=== PATIENT | female | born 1980 | race Caucasian/White ===

== ENCOUNTER 2017-03-11 05:48 | Emergency (ER) | payer MEDICAID, SELFPAY ==
[~2017-03-11] VITALS: Ht 160 cm; Wt 66.2 kg
[2017-03-11] MEDS ORDERED: SODIUM CHLORIDE FLUSH 10ML SYR IVF ONE (06:30)
[2017-03-11] MEDS ORDERED: SODIUM CHLORIDE 0.9% 1,000ML IVBOLUS ONE (06:30)
[2017-03-11] MEDS ORDERED: FAMOTIDINE 20 MG/2 ML IVP ONE (06:30)
[2017-03-11] MEDS ORDERED: ONDANSETRON 2MG/ML, 2ML IVPush ONE (06:30)
[2017-03-11] MEDS ORDERED: ONDANSETRON 2MG/ML, 2ML ONE (06:49)
[2017-03-11] MEDS ORDERED: FAMOTIDINE 20 MG/2 ML ONE (06:49)
[2017-03-11 07:43] LABS: ASPARTATE AMINO TRANSFERASE 16 U/L (15-37); BLOOD UREA NITROGEN 10 mg/dL (7-18)
[2017-03-11 08:36] LABS: PATH.CAST-FLAG NOT PRESENT; SPERM-FLAG NOT PRESENT; SRC-FLAG NOT PRESENT; XTAL-FLAG NOT PRESENT; YLC-FLAG NOT PRESENT
[2017-03-11 12:04] VITALS: BP 12/50
== END 2017-03-11 12:06 | disposition home or self-care (01) ==
LOC: ED 09:09
DX: N30.01 Acute cystitis with hematuria (principal); K59.00 Constipation, unspecified; R10.11 Right upper quadrant pain; R10.31 Right lower quadrant pain
CPT/HCPCS: 36415; 74000; 76700; 80053; 81001; 83690; 84703; 85025; 87086; 96361; 96374; 96375; 99285; J2405; J7030; S0028